=== PATIENT | female | born 1935 | race Caucasian/White ===

== ENCOUNTER → 2019-12-30 | Emergency (ER) | payer OTHER ==
[~2019-12-30] VITALS: Ht 162.6 cm; Wt 68.0 kg
[~2019-12-30] MED LIST: HYDROmorphone HCL 2 MG/ML VL IM ONE; POTASSIUM EFFERVESENT TAB 25 MEQ PO ONE
[2019-12-30 08:04] LABS: Basophils # (auto) 0.1 10 ^3/uL (0-0.2); Basophils % (auto) 0.5 % (0.0-2.0); Eosinophils # (auto) 0 10 ^3/uL (0-0.8); Eosinophils % (auto) 0.2 % (0.0-7.0); Hemoglobin 12.4 g/dL (12.2-16.2); Lymphocytes # (auto) 1.3 10 ^3/uL (0.4-5.4); Lymphocytes % (auto) 9.6 % (10.0-50.0); Mean Corpuscular Hemoglobin 30.8 pg (28.0-32.0); Mean Corpuscular Hgb Conc. 33.7 g/dL (32.0-36.0); Mean Corpuscular Volume 91.4 fL (80.0-100.0); Monocytes # (auto) 1.2 10 ^3/uL (0-1.3); Monocytes % (auto) 9.4 % (0.0-12.0); Neutrophils # (auto) 10.5 10 ^3/uL (1.6-8.6); Neutrophils % (auto) 80.3 % (37.0-80.0); Platelet Count (auto) 228 10^3/uL (140-450); Red Blood Cells 4.04 10^6/uL (4.0-5.20); Red Cell Distribution Width 13.2 % (11.8-14.3)
[2019-12-30 08:24] LABS: Alanine Aminotransferase 16 U/L (13-56); Albumin 3.2 g/dL (3.4-5.0); Anion Gap 5 (5-15); Aspartate Aminotransferase 10 U/L (15-37); BUN/Creatinine Ratio 18.9; Blood Urea Nitrogen 14 mg/dL (7-18); Calcium 8.7 mg/dL (8.5-10.1); Carbon Dioxide 31 mmol/L (21-32); Chloride 98 mmol/L (98-107); GFR African American 96 mL/min; GFR Non-African American 80 mL/min; Glucose 129 mg/dL (74-106); Potassium 3.2 mmol/L (3.5-5.1); Sodium 134 mmol/L (136-145)
[2019-12-30 08:29] LABS: Alkaline Phosphatase 55 U/L (45-117)
[2019-12-30 08:44] LABS: Urine Bacteria NONE SEEN /hpf (None Seen); Urine Blood TRACE /uL (Negative); Urine Specific Gravity 1.014 (1.001-1.035); Urine WBC 7 /hpf (0 - 5)
[2019-12-30 09:05] VITALS: BP 125/80
== END | disposition home or self-care (01) ==
LOC: EDUNIT# 06:02 → EDBD 06:08 → ER 06:08
DX: M16.11 Unilateral primary osteoarthritis, right hip (principal); M25.561 Pain in right knee; G89.4 Chronic pain syndrome; N39.0 Urinary tract infection, site not specified; E44.1 Mild protein-calorie malnutrition; E87.6 Hypokalemia; E78.5 Hyperlipidemia, unspecified; I10 Essential (primary) hypertension; Z68.25 Body mass index [BMI] 25.0-25.9, adult
CPT/HCPCS: 36415; 72131; 73700; 80053; 81001; 84484; 85025; 93005; 96372; 99285; J1170

== ENCOUNTER → 2020-06-10 | Emergency (ER) | payer OTHER ==
[~2020-06-10] MED LIST changes: +AZITHROMYCIN 500MG/ 250ML 250 ML IV ONE; +DexAMETHasone INJECTION 10 MG in D5W 5% 50 ML IV ONE; +DexAMETHasone SOD PHOS 10MG/1ML VIAL INJ IV ONE; -HYDROmorphone HCL 2 MG/ML VL IM ONE; +MORPHINE SULFATE 4 MG/ML SYR/VIAL IV ONE; +ONDANSETRON HCL 4 MG/2 ML VIAL IV ONE; +PROMETHAZINE W/CODEINE 5 ML ORAL SYRUP PO ONE; +SODIUM CHLORIDE 0.9% 1,000 ML IV ONE; +SODIUM CHLORIDE 0.9% 500 ML IVB ONE; +cefTRIAXone 1GM/50ML D5W 50 ML IV ONE
[2020-06-10 13:44] LABS: Basophils # (auto) 0 10 ^3/uL (0-0.2); Basophils % (auto) 0.5 % (0.0-2.0); Eosinophils # (auto) 0 10 ^3/uL (0-0.8); Eosinophils % (auto) 0.3 % (0.0-7.0); Hematocrit 39.9 % (36.0-46.0); Hemoglobin 13.5 g/dL (12.2-16.2); Lymphocytes # (auto) 1.3 10 ^3/uL (0.4-5.4); Mean Corpuscular Hemoglobin 30.2 pg (28.0-32.0); Mean Corpuscular Hgb Conc. 33.7 g/dL (32.0-36.0); Mean Corpuscular Volume 89.5 fL (80.0-100.0); Monocytes # (auto) 0.6 10 ^3/uL (0-1.3); Monocytes % (auto) 8.8 % (0.0-12.0); Neutrophils # (auto) 4.7 10 ^3/uL (1.6-8.6); Neutrophils % (auto) 71.4 % (37.0-80.0); Platelet Count (auto) 234 10^3/uL (140-450); Red Blood Cells 4.46 10^6/uL (4.0-5.20); Red Cell Distribution Width 13.4 % (11.8-14.3); White Blood Cell 6.6 10^3/uL (4.4-10.8)
[2020-06-10 13:54] LABS: Urine WBC None Seen /hpf (0 - 5)
[2020-06-10 14:00] LABS: Partial Thromboplastin Time 25.1 sec (23.0-31.2)
[2020-06-10 14:01] LABS: Alanine Aminotransferase 25 U/L (13-56); Albumin 3.3 g/dL (3.4-5.0); Anion Gap 3 (5-15); Blood Urea Nitrogen 25 mg/dL (7-18); Calcium 8.4 mg/dL (8.5-10.1); Carbon Dioxide 31 mmol/L (21-32); Chloride 103 mmol/L (98-107); Glucose 145 mg/dL (74-106); Lipase 158 U/L (73-393); Magnesium 1.9 mg/dL (1.6-2.6); Potassium 3.2 mmol/L (3.5-5.1); Sodium 137 mmol/L (136-145)
[2020-06-10 14:04] LABS: Urine Bacteria NONE SEEN /hpf (None Seen); Urine Blood Negative /uL (Negative); Urine Hyaline Cast FEW /lpf (0 - 2); Urine Specific Gravity 1.007 (1.001-1.035)
[2020-06-10 14:06] LABS: Alkaline Phosphatase 55 U/L (45-117); Aspartate Aminotransferase 21 U/L (15-37); BUN/Creatinine Ratio 23.1; Bilirubin, Total 0.8 mg/dL (0.2-1.0); GFR African American 62 mL/min; GFR Non-African American 51 mL/min; Total Protein 6.4 g/dL (6.4-8.2)
[2020-06-10 19:17] VITALS: BP 113/46
== END | disposition home or self-care (01) ==
LOC: EDUNIT# 11:38 → ER 11:53 → EDBD 11:53
DX: U07.1 COVID-19 (principal); J18.9 Pneumonia, unspecified organism; E87.6 Hypokalemia; E46 Unspecified protein-calorie malnutrition; E05.80 Other thyrotoxicosis without thyrotoxic crisis or storm; I12.9 Hypertensive chronic kidney disease with stage 1 through stage 4 chronic kidney disease, or unspecified chronic kidney disease; N18.3 Chronic kidney disease, stage 3 (moderate); R19.7 Diarrhea, unspecified; E78.5 Hyperlipidemia, unspecified
CPT/HCPCS: 36415; 71045; 80053; 81001; 83690; 83735; 84443; 84484; 85025; 85610; 85730; 87040; 96361; 96365; 96366; 96367; 96375; 99285; J0456; J0696; J1100; J2270; J2405; J7030; J7060; 93005; 96368

== ENCOUNTER → 2020-06-22 | Emergency (ER) | payer OTHER ==
[~2020-06-22] VITALS: Ht 162.6 cm; Wt 68.0 kg
[~2020-06-22] MED LIST changes: -AZITHROMYCIN 500MG/ 250ML 250 ML IV ONE; -DexAMETHasone INJECTION 10 MG in D5W 5% 50 ML IV ONE; -DexAMETHasone SOD PHOS 10MG/1ML VIAL INJ IV ONE; +ENOXAPARIN SOD 80 MG/0.8ML SYRINGE SC ONE; -MORPHINE SULFATE 4 MG/ML SYR/VIAL IV ONE; -ONDANSETRON HCL 4 MG/2 ML VIAL IV ONE; -POTASSIUM EFFERVESENT TAB 25 MEQ PO ONE; -PROMETHAZINE W/CODEINE 5 ML ORAL SYRUP PO ONE; -SODIUM CHLORIDE 0.9% 1,000 ML IV ONE; -SODIUM CHLORIDE 0.9% 500 ML IVB ONE
[2020-06-22 21:08] LABS: Basophils # (auto) 0 10 ^3/uL (0-0.2); Basophils % (auto) 0.1 % (0.0-2.0); Eosinophils # (auto) 0.2 10 ^3/uL (0-0.8); Eosinophils % (auto) 1.2 % (0.0-7.0); Hematocrit 36.2 % (36.0-46.0); Hemoglobin 11.8 g/dL (12.2-16.2); Lymphocytes # (auto) 2.9 10 ^3/uL (0.4-5.4); Lymphocytes % (auto) 20.3 % (10.0-50.0); Mean Corpuscular Hgb Conc. 32.6 g/dL (32.0-36.0); Mean Corpuscular Volume 88.9 fL (80.0-100.0); Monocytes % (auto) 7.1 % (0.0-12.0); Neutrophils # (auto) 10.3 10 ^3/uL (1.6-8.6); Neutrophils % (auto) 71.3 % (37.0-80.0); Platelet Count (auto) 215 10^3/uL (140-450); Red Blood Cells 4.07 10^6/uL (4.0-5.20); Red Cell Distribution Width 13.6 % (11.8-14.3); White Blood Cell 14.4 10^3/uL (4.4-10.8)
[2020-06-22 21:25] LABS: Albumin 2.9 g/dL (3.4-5.0); Anion Gap 7 (5-15); BUN/Creatinine Ratio 31.7; Blood Urea Nitrogen 39 mg/dL (7-18); Calcium 8.7 mg/dL (8.5-10.1); Carbon Dioxide 22 mmol/L (21-32); Chloride 112 mmol/L (98-107); GFR African American 53 mL/min; GFR Non-African American 44 mL/min; Glucose 130 mg/dL (74-106); Potassium 3.8 mmol/L (3.5-5.1); Sodium 141 mmol/L (136-145)
[2020-06-22 21:29] LABS: INR 1.01 (0.9-1.15)
[2020-06-22 21:30] LABS: Alanine Aminotransferase 22 U/L (13-56); Alkaline Phosphatase 50 U/L (45-117); Aspartate Aminotransferase 18 U/L (15-37); Bilirubin, Total 0.6 mg/dL (0.2-1.0); Total Protein 5.8 g/dL (6.4-8.2)
[2020-06-23 01:05] VITALS: BP 168/85
== END | disposition short-term general hospital (02) ==
LOC: ER 18:33
DX: I82.602 Acute embolism and thrombosis of unspecified veins of left upper extremity (principal); L03.114 Cellulitis of left upper limb; I10 Essential (primary) hypertension; E78.5 Hyperlipidemia, unspecified; Z91.040 Latex allergy status
CPT/HCPCS: 36415; 80053; 84484; 85025; 85379; 85610; 93971; 96365; 96372; 99285; J0696; J1650